=== PATIENT | male | born 1965 | race Caucasian/White ===

== ENCOUNTER → 2018-03-10 | Outpatient (CLI) | payer OTHER | END | disposition home or self-care (01) | LOC: CFH 11:48 | PROVIDERS: ATTEND Nurse Practitioner | DX: E04.9 Nontoxic goiter, unspecified (principal) | CPT/HCPCS: 76536 ==

== ENCOUNTER → 2018-10-16 | Outpatient (CLI) | payer BC | END | disposition home or self-care (01) | LOC: CFH 08:09 | PROVIDERS: ATTEND Internal Medicine Cardiovascular Disease | DX: I73.9 Peripheral vascular disease, unspecified (principal); I82.402 Acute embolism and thrombosis of unspecified deep veins of left lower extremity; I25.2 Old myocardial infarction | CPT/HCPCS: 78452; 93017; A9502 ==

== ENCOUNTER 2018-11-30 08:14 | Day surgery (SDC) | payer BC ==
[~2018-11-30] VITALS: Ht 168.9 cm; Wt 76.4 kg
[2018-11-30 08:42] VITALS: BP 116/76
[2018-11-30] MEDS ORDERED: CLOP75TA PO (08:48)
[2018-11-30] MEDS ORDERED: ASPI81TA45 PO (08:48)
[2018-11-30] MEDS ORDERED: METO25TA91 PO (08:48)
[2018-11-30] MEDS ORDERED: ATOR20TA37 PO (08:48)
[2018-11-30] MEDS ORDERED: CHOL2000 PO (08:48)
[2018-11-30] MEDS ORDERED: FENTANYL PF 100 MCG/2ML ONE (09:41)
[2018-11-30] MEDS ORDERED: LIDOCAINE 2%, 20ML ONE (09:41)
[2018-11-30] MEDS ORDERED: MIDAZOLAM 1 MG/ML, 5ML ONE (09:41)
== END 2018-11-30 13:32 | disposition home or self-care (01) ==
LOC: CACL 08:14
PROVIDERS: ATTEND Internal Medicine Cardiovascular Disease
DX: I25.10 Atherosclerotic heart disease of native coronary artery without angina pectoris (principal); E78.5 Hyperlipidemia, unspecified; I73.9 Peripheral vascular disease, unspecified; E55.9 Vitamin D deficiency, unspecified; F17.210 Nicotine dependence, cigarettes, uncomplicated; Z86.718 Personal history of other venous thrombosis and embolism; Z95.5 Presence of coronary angioplasty implant and graft
CPT/HCPCS: 93458; 99156; 99157; C1760; C1769; C1894; J2250; J3010; Q9967

== ENCOUNTER → 2019-06-15 | Outpatient (CLI) | payer BC, OTHER ==
[~2019-06-15] MED LIST: ASPI81TA45 PO; ATOR20TA37 PO; CHOL2000 PO; CLOP75TA PO; METO25TA91 PO
== END | disposition home or self-care (01) ==
LOC: CFH 10:16
PROVIDERS: ATTEND Genetic Counselor, MS
DX: Z12.2 Encounter for screening for malignant neoplasm of respiratory organs (principal); F17.209 Nicotine dependence, unspecified, with unspecified nicotine-induced disorders; I25.10 Atherosclerotic heart disease of native coronary artery without angina pectoris; J84.10 Pulmonary fibrosis, unspecified
CPT/HCPCS: G0297

== ENCOUNTER 2020-05-24 07:58 | Emergency (ER) | payer OTHER ==
[~2020-05-24] VITALS: Ht 167.6 cm; Wt 82.6 kg
--- NOTE | 2020-05-24 09:20 | NUR ---
PT AMBULATED TO RESTROOM WITH A STEADY GAIT
[2020-05-24 10:10] VITALS: BP 124/74
== END 2020-05-24 10:12 | disposition home or self-care (01) ==
LOC: ED 08:29
DX: M54.41 Lumbago with sciatica, right side (principal); I25.2 Old myocardial infarction; Z86.39 Personal history of other endocrine, nutritional and metabolic disease; W18.30XA Fall on same level, unspecified, initial encounter; Y93.89 Activity, other specified; Y92.89 Other specified places as the place of occurrence of the external cause; Y99.8 Other external cause status
CPT/HCPCS: 72110; 99283

== ENCOUNTER 2020-06-27 07:31 | Outpatient (CLI) | payer OTHER | END 2020-06-27 23:59 | disposition home or self-care (01) | LOC: CVU 07:31 | PROVIDERS: ATTEND Internal Medicine Cardiovascular Disease | DX: I73.9 Peripheral vascular disease, unspecified (principal) | CPT/HCPCS: 93922 ==

== ENCOUNTER → 2021-02-27 | Outpatient (CLI) | payer OTHER | END | disposition home or self-care (01) | LOC: CFH 08:44 | PROVIDERS: ATTEND Internal Medicine Cardiovascular Disease | DX: I08.8 Other rheumatic multiple valve diseases (principal); I25.10 Atherosclerotic heart disease of native coronary artery without angina pectoris; I25.2 Old myocardial infarction; Z72.0 Tobacco use | CPT/HCPCS: 93306; 93356 ==